=== PATIENT | female | born 1995 | race Two or more races ===

== ENCOUNTER 2017-03-14 20:57 | Inpatient (IN) | payer OTHER ==
[~2017-03-14] VITALS: Ht 162.6 cm; Wt 85.7 kg
[~2017-03-14 20:57] MED LIST: PRENATABS FA TA1 TAB
== END 2017-03-16 15:27 | disposition home or self-care (01) | DRG 778 ==
LOC: OBS/DEL 20:57 → LDR 03-15 13:32
PROC: 4A1HXCZ Monitoring of Products of Conception, Cardiac Rate, External Approach (ICD-10-PCS; principal; 2017-03-15)
DX: O60.03 Preterm labor without delivery, third trimester (principal); O23.43 Unspecified infection of urinary tract in pregnancy, third trimester; Z3A.34 34 weeks gestation of pregnancy

== ENCOUNTER 2017-03-22 18:15 | Inpatient (IN) | payer OTHER ==
[~2017-03-22] VITALS: Ht 121.9 cm; Wt 2.3 kg
== END 2017-03-27 13:40 | DRG 765 ==
LOC: OBS/DEL 18:15 → LDR 03-23 17:47 → OB/GYN 03-25 13:30
PROVIDERS: Obstetrics & Gynecology Obstetrics
PROC: 4A1HXCZ Monitoring of Products of Conception, Cardiac Rate, External Approach (ICD-10-PCS; 2017-03-23)
PROC: 4A033R1 Measurement of Arterial Saturation, Peripheral, Percutaneous Approach (ICD-10-PCS; 2017-03-24)
PROC: 10D00Z1 Extraction of Products of Conception, Low, Open Approach (ICD-10-PCS; principal; 2017-03-24 10:15)
DX: O14.13 Severe pre-eclampsia, third trimester (principal); O60.14X0 Preterm labor third trimester with preterm delivery third trimester, not applicable or unspecified; Z3A.36 36 weeks gestation of pregnancy; Z37.0 Single live birth

== ENCOUNTER 2020-09-04 18:42 | Emergency (ER) | payer OTHER ==
[~2020-09-04] VITALS: Ht 162.6 cm; Wt 81.6 kg
[2020-09-04] MEDS ORDERED: COZAAR50 MG (18:56)
== END 2020-09-04 22:36 | disposition home or self-care (01) ==
LOC: ER 18:42
DX: N93.9 Abnormal uterine and vaginal bleeding, unspecified (principal)